=== PATIENT | female | born 1975 | race Caucasian/White ===

== ENCOUNTER 2017-02-09 16:40 | Emergency (ER) | payer OTHER ==
[~2017-02-09] VITALS: Ht 160 cm; Wt 74.5 kg
[2017-02-09 16:45] VITALS: Ht 160 cm; Wt 74.5 kg
[2017-02-09] MEDS ORDERED: ACETAMINOPHEN 500 MG TAB PO STA (19:01)
[2017-02-09] MEDS ORDERED: GUAI118L22 PO (19:06)
[2017-02-09] MEDS ORDERED: OSLT75C PO (19:06)
[2017-02-09] MEDS ORDERED: ACET500C5 PO (19:06)
--- NOTE | 2017-02-09 19:15 | ERD ---
ER Documentation Chief Complaint Chief Complaint flu like symptoms today HPI 1-year-old female comes in with cough, headache, sore throat, fever and body aches 1 day. Patient states that this started this morning. Cough has been dry, she is achy pain all over, and took ibuprofen. She denies any chest pain, shortness breath, abdominal pain, dysuria, urgency.. Patient did not receive her flu shot this year. She denies recent travel. ROS All systems reviewed and are negative except as per history of present illness. Medications Home Meds Active Scripts Guaifenesin/Codeine Phosphate (CHERATUSSIN AC SYRUP) 118 Ml Liquid, 5 ML PO Q4H Y for COUGH, #118 ML Prov:ELANA ROTH PA-C 02/09/17 Oseltamivir Phosphate* (Tamiflu*) 75 Mg Capsule, 75 MG PO BID for 5 Days, CAP Prov:ELANA ROTH PA-C 02/09/17 Acetaminophen* (Tylophen*) 500 Mg Capsule, 1 CAP PO Q6H Y for PAIN AND OR ELEVATED TEMP, #20 CAP Prov:ELANA ROTH PA-C 02/09/17 PMhx/Soc Medical and Surgical Hx: pt denies Medical Hx, pt denies Surgical Hx History of Surgery: No Anesthesia Reaction: No Hx Neurological Disorder: No Hx Respiratory Disorders: No Hx Cardiac Disorders: No Hx Psychiatric Problems: No Hx Miscellaneous Medical Probl: No Hx Alcohol Use: No Hx Substance Use: No Hx Tobacco Use: No Smoking Status: Never smoker Physical Exam Vitals Vital Signs Date Time Temp Pulse Resp B/P Pulse Ox O2 Delivery O2 Flow Rate FiO2 02/09/17 16:45 99.3 82 18 147/82 98 Physical Exam General: Well-developed, well-nourished. The patient appears in no acute distress. HEENT: Head is normocephalic, atraumatic. No scleral icterus. Pupils are equal , round, and reactive. Oral mucous membranes are moist. No pharyngeal erythema. Neck: Supple. Nontender. Lungs: Clear to auscultation. Normal air movement. Heart: Regular rate and rhythm. S1 and S2 are normal. No murmurs, gallops, or rubs. Abdomen: Soft, nontender, nondistended. Bowel sounds are normoactive. Extremities: No clubbing or cyanosis. Normal pulses. Moving extremities x 4. No weakness. Neurologic: Alert and oriented 3. No focal deficits. Skin: Normal turgor. No rash or lesions. Results 24 hrs Current Medications Medications (Trade) Dose Ordered Sig/Jackie Route PRN Reason Start Time Stop Time Status Last Admin Dose Admin Acetaminophen (Tylenol Tab) 1,000 mg ONCE STAT PO 02/09/17 19:01 02/09/17 19:02 DC 02/09/17 19:05 Procedures/MDM The patient is a a 1-year-old female who comes in with like symptoms. No signs of sepsis, pneumonia, respiratory distress, dehydration. The patient has a differential diagnosis of a viral upper respiratory infection, bacterial upper respiratory infection, bronchitis, pneumonia, pharyngitis, laryngitis, epiglottitis, croup, pneumonia. Patient has a normal pulmonary examination, clear breath sounds, normal pulse oximetry, with no corrective measures needed at this time. Fluids, rest, antipyretics were encouraged. Departure Diagnosis: Primary Impression: Influenza-like symptoms Condition: Good Patient Instructions: Viral Syndrome (Adult) ELANA ROTH PA-C Feb 09, 2017 19:15
== END 2017-02-09 19:13 | disposition home or self-care (01) ==
LOC: FTE 16:40
DX: R05 Cough (principal); J02.9 Acute pharyngitis, unspecified; R50.9 Fever, unspecified; R51 Headache
CPT/HCPCS: 99283